=== PATIENT | female | born 1955 | race Caucasian/White ===

== ENCOUNTER 2022-01-18 08:06 | Day surgery (SDC) | payer MEDICARE ==
[2022-01-16 10:32] VITALS: BMI 32.2
[~2022-01-18 08:06] MED LIST: LACTATED RINGERS 1,000 ML IV SCH; LIDOCAINE 1% (10MG/ML) FOR IV START INTRADERMA PRN
[2022-01-18 08:29] VITALS: TEMP 97.7
[2022-01-18] MEDS ORDERED: PROPOFOL 10 MG/ML 20 ML VIAL IV ONE (09:05)
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
--- NOTE | 2022-01-18 09:22 | P.OP ---
Date of Procedure: 01/18/22 Preoperative Diagnosis: Screening colonoscopy Postoperative Diagnosis: Mild Diverticulosis Procedure(s) Performed: Colonoscopy Anesthesia: MAC Surgeon: Benjamin Carias Pathology: none sent Condition: stable Disposition: PACU Description of Procedure: The patient's placed on the endoscopy table in the lateral position. She received IV sedation. Digital rectal exam was performed which revealed no abnormalities. Flexible colonoscope was then placed patient anus passed throughout the entire colon. The ileocecal valve was visualized. Cecum, ascending and transverse colon appeared normal. In the descending; there is mild diverticular changes. Scope was then brought back the rectum and this appeared normal. Scope withdrawn for patient.
[2022-01-18 09:26] VITALS: RESP 16
[2022-01-18 09:42] VITALS: BP 104/67; PULSE 78
== END 2022-01-18 10:00 | disposition home or self-care (01) ==
LOC: ORWHC2ENDO 08:06
PROVIDERS: ATTEND Surgery
DX: Z12.11 Encounter for screening for malignant neoplasm of colon (principal); K57.30 Diverticulosis of large intestine without perforation or abscess without bleeding; E78.5 Hyperlipidemia, unspecified; I10 Essential (primary) hypertension; E07.9 Disorder of thyroid, unspecified; M54.9 Dorsalgia, unspecified; Z98.51 Tubal ligation status; Z98.890 Other specified postprocedural states; Z95.820 Peripheral vascular angioplasty status with implants and grafts; Z87.891 Personal history of nicotine dependence; Z80.8 Family history of malignant neoplasm of other organs or systems; Z79.82 Long term (current) use of aspirin; Z79.890 Hormone replacement therapy; Z79.899 Other long term (current) drug therapy; Z88.5 Allergy status to narcotic agent; F41.9 Anxiety disorder, unspecified; F32.A Depression, unspecified
CPT/HCPCS: J2704; G0121